=== PATIENT | female | born 1980 | race Caucasian/White ===

== ENCOUNTER 2016-07-13 13:39 | Emergency (ER) | payer OTHER ==
[~2016-07-13] VITALS: Ht 165.1 cm; Wt 86.4 kg
[~2016-07-13 13:39] MED LIST: CLIN150 PO; DILA8TAB4 PO; MORP30SU PO
[2016-07-13 13:41] VITALS: BP 150/94; PULSE 106; RESP 20; TEMP 98; O2SAT 98
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
[2016-07-13] MEDS ORDERED: IBUPROFEN 800 MG TAB PO ONE (14:30)
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
[2016-07-13] MEDS ORDERED: IBUP800T23 PO (15:17)
== END 2016-07-13 15:35 | disposition home or self-care (01) ==
LOC: NEPB 13:39
DX: S89.92XA Unspecified injury of left lower leg, initial encounter (principal); M25.462 Effusion, left knee; F17.200 Nicotine dependence, unspecified, uncomplicated; Z87.42 Personal history of other diseases of the female genital tract; V89.2XXA Person injured in unspecified motor-vehicle accident, traffic, initial encounter
CPT/HCPCS: 73564; 99284; E0113; L1830